=== PATIENT | female | born 1995 | race Asian ===

== ENCOUNTER 2021-05-07 17:12 | Observation (INO) | payer OTHER, SELFPAY ==
[2021-05-07 17:46] VITALS: BP 96/58; PULSE 77
[2021-05-07 18:01] VITALS: BP 91/61; PULSE 70
[2021-05-07] MEDS: DEXTROSE 5%/LACTATED RINGERS 1,000 ML 999 ML IV CONT (18:31)
[2021-05-07 19:05] VITALS: BMI 23.3
--- NOTE | 2021-05-07 19:05 | OBADM ---
This patient, Yvette Morrissey, admitted to the OB room OB Post 115 for observation. Patient/family oriented to hospital policies and general routines including ID bracelet, bed and alarms, visiting hours, pain management, procedures, bathroom and other care routines, personal items, smoking policy, room service/diet, and visiting hours. Patient/Family are encouraged to report perceived risks to care and to ask questions if they do not understand what they are told or what they should do.
[2021-05-07 19:06] LABS: Alanine Aminotransferase 42 U/L (4-35); Albumin Level 4.4 g/dL (3.5-5.1); Alkaline Phosphatase 71 U/L (38-126); Anion Gap 9 mmol/L (8-16); Aspartate Amino Transferase 37 U/L (14-36); Bilirubin,Total 0.9 mg/dL (0.2-1.3); Blood Urea Nitrogen 2 mg/dL (7-17); Calcium 9.4 mg/dL (8.4-10.2); Carbon Dioxide 24 mmol/L (22-30); Chloride 102 mmol/L (98-107); Estimated Glomerular Filt Rate > 60; Glucose 79 mg/dL (65-110); Potassium 3.7 mmol/L (3.4-5.0); Sodium 135 mmol/L (137-145)
[2021-05-07] MEDS: PROMETHAZINE HCL 25 MG/ML AMPUL 12.5 MG IV PUSH (19:40)
[2021-05-07] MEDS: DEXTROSE 5%/LACTATED RINGERS 1,000 ML 200 ML IV CONT (19:45)
[2021-05-07 19:55] LABS: Free T4 Free Thyroxine 0.83 ng/mL (0.78-2.19)
[2021-05-07 19:56] LABS: Add Urine Microscopic? YES; Amorphous Sediment Urine Few; Appearance Urine Clear (Clear); Bacteria Urine Trace /hpf; Bilirubin Urine Negative (Negative); Blood Urine 1+ (Negative); Color Urine Colorless (Yellow); Glucose Urine UA 3+ mg/dL (Negative); Ketones Urine Negative (Negative); Leukocyte Esterase Ur Negative LEU/UL (NEGATIVE); Nitrate Urine Negative (Negative); Protein Urine Negative (Negative); RBC Urine 0-2 /hpf (0-2); Squamous Epithelial Cell Urine Occasional /hpf (Few); Urobilinogen Urine Negative mg/dL (<2.0); WBC Urine 0-3 /hpf (0-3)
[2021-05-07 20:03] LABS: Specific Grav Ur 1.003 (1.001-1.035)
--- NOTE | 2021-05-29 09:44 | PM.OBTRLD ---
OB - Triage/Final Diagnosis Visit Information Comments/Additional reasons for admission: I have assessed the risk for this patient, Yvette Morrissey, and determined that she would benefit from observation care. Evaluation Laboratory results: Laboratory Tests 05/07/21 05/07/21 05/07/21 18:28 18:28 18:28 Sodium 135 L Potassium 3.7 Chloride 102 Carbon Dioxide 24 Anion Gap 9 BUN 2 L Creatinine 0.40 L Estim Creat Clear Calc Not Reportable Estimated GFR > 60 Glucose 79 Calcium 9.4 Total Bilirubin 0.9 AST 37 H ALT 42 H Alkaline Phosphatase 71 Total Protein 8.0 Albumin 4.4 TSH 2.240 Cancelled Free T4 0.83 Urine Color Urine Appearance Urine pH Ur Specific [place] Urine Protein Urine Glucose (UA) Urine Ketones Ur Blood (Man) Urine Nitrate Urine Bilirubin Urine Urobilinogen Ur Leukocyte Esterase Urine RBC Urine WBC Ur Squamous Epith Cells Amorphous Sediment Urine Bacteria 05/07/21 19:39 Sodium Potassium Chloride Carbon Dioxide Anion Gap BUN Creatinine Estim Creat Clear Calc Estimated GFR Glucose Calcium Total Bilirubin AST ALT Alkaline Phosphatase Total Protein Albumin TSH Free T4 Urine Color Colorless Urine Appearance Clear Urine pH 8.0 Ur Specific [place] 1.003 Urine Protein Negative Urine Glucose (UA) 3+ H Urine Ketones Negative Ur Blood (Man) 1+ H Urine Nitrate Negative Urine Bilirubin Negative Urine Urobilinogen Negative Ur Leukocyte Esterase Negative Urine RBC 0-2 Urine WBC 0-3 Ur Squamous Epith Cells Occasional Amorphous Sediment Few H Urine Bacteria Trace Final Diagnosis (1) Hyperemesis affecting , antepartum: Code(s): O21.0 - Mild hyperemesis gravidarum Status: Acute
== END 2021-05-07 23:00 | disposition home or self-care (01) ==
PROVIDERS: Obstetrics & Gynecology; Admitting Provider Obstetrics & Gynecology; PCP Internal Medicine; Visit Provider Obstetrics & Gynecology
DX: O21.0 Mild hyperemesis gravidarum (principal); Z3A.00 Weeks of gestation of pregnancy not specified
CPT/HCPCS: 36415; 80053; 81001; 84439; 84443; 96361; 96374; G0378; G0379; J2550; J7121

== ENCOUNTER 2021-05-14 14:34 | Outpatient (CLI) | payer OTHER, SELFPAY ==
[2021-05-14 20:00] LABS: Alanine Aminotransferase 54 U/L (4-35); Albumin Level 4.2 g/dL (3.5-5.1); Alkaline Phosphatase 77 U/L (38-126); Anion Gap 12 mmol/L (8-16); Aspartate Amino Transferase 40 U/L (14-36); Blood Urea Nitrogen 3 mg/dL (7-17); Calcium 9.8 mg/dL (8.4-10.2); Carbon Dioxide 23 mmol/L (22-30); Chloride 99 mmol/L (98-107); Estimated Glomerular Filt Rate > 60; Glucose 93 mg/dL (65-110); Potassium 3.8 mmol/L (3.4-5.0); Sodium 134 mmol/L (137-145)
[2021-05-14 20:05] LABS: Vitamin D 25 Hydroxy 40.4 ng/mL
[2021-05-14 20:30] LABS: HIV 1/2 Ab P24 Ag Result Negative (Negative); Hepatitis B Surface Antigen Negative (Negative); Rubella IgG Antibody 75.4 IU/ML
[2021-05-14 20:36] LABS: Hepatitis C Virus Antibody Negative (Negative)
[2021-05-15 10:05] LABS: Rapid Plasma Reagin Non-Reactive (NonReactive)
== END 2021-05-14 14:35 | disposition home or self-care (01) ==
PROVIDERS: PCP Internal Medicine; Visit Provider Obstetrics & Gynecology
DX: Z34.90 Encounter for supervision of normal pregnancy, unspecified, unspecified trimester (principal)
CPT/HCPCS: 36415; 80053; 82248; 82306; 86592; 86703; 86762; 86787; 86803; 87340; G0432

== ENCOUNTER 2021-05-21 16:32 | Outpatient (CLI) | payer OTHER, SELFPAY ==
[2021-05-21 16:52] LABS: Basophils Absolute Auto 0.1 K/mm3 (0.0-0.1); Basophils Percent Auto 0.5 % (0.2-1.2); Eosinophils Absolute Auto 0.1 K/mm3 (0-0.3); Eosinophils Percent Auto 0.9 % (0-4.4); Hematocrit 40.6 % (37.0-47.0); Hemoglobin 13.4 g/dL (12.0-15.0); Immature Granulocyte Absolute 0.13 K/mm3 (0.00-0.031); Immature Granulocyte Percent A 1.3 % (0-0.5); Lymphocytes Absolute Auto 2.05 K/mm3 (0.9-3.2); Mean Corpuscular Hemoglobin 28.4 pg (26-34); Monocytes Absolute Auto 0.5 K/mm3 (0.1-0.6); Monocytes Percent Auto 4.9 % (2.6-8.5); Neutrophils Absolute Auto 7.5 K/mm3 (1.3-6.7); Neutrophils Percent Auto 72.4 % (45.5-73.1); Platelet Count Result 318 k/mm3 (150-375); Red Blood Count 4.72 M/mm3 (4.2-5.4); White Blood Count 10.3 K/mm3 (4.5-10.0)
[2021-05-21 17:04] LABS: Alanine Aminotransferase 28 U/L (4-35); Albumin Level 4.2 g/dL (3.5-5.1); Alkaline Phosphatase 72 U/L (38-126); Aspartate Amino Transferase 25 U/L (14-36); Bilirubin,Total 0.8 mg/dL (0.2-1.3)
[2021-05-24 19:47] LABS: Hematocrit 40.3 % (35.0-45.0); Hemoglobin 13.5 g/dL (11.7-15.5); MCH 29.3 pg (27.0-33.0); MCV 87.5 fL (80.0-100.0); RDW 12.9 % (11.0-15.0); Red Blood Cell Count 4.61 Mill/uL (3.80-5.10)
== END 2021-05-21 16:33 | disposition home or self-care (01) ==
PROVIDERS: PCP Internal Medicine; Visit Provider Obstetrics & Gynecology
DX: Z34.90 Encounter for supervision of normal pregnancy, unspecified, unspecified trimester (principal); R74.8 Abnormal levels of other serum enzymes
CPT/HCPCS: 36415; 80076; 83021; 85025; 86850; 86900; 86901

== ENCOUNTER 2021-06-13 15:06 | Emergency (ER) | payer OTHER, SELFPAY ==
--- NOTE | ~2021-06-13 | US_ITS ---
US OB <= 14 weeks fetus DATE: 06/13/2021 17:48 INDICATION: Vaginal bleeding TECHNIQUE: Real-time imaging and Doppler analysis COMPARISON: 08/04/2019 obstetrical ultrasound FINDINGS: The uterus measures 13 cm height, 7.4 cm anteroposterior and 10.3 cm transverse dimension. There is a live allison intrauterine gestation. Posterior placenta. Subjectively normal amount of a mniotic fluid. heart rate of 163 bpm. [place]-rump length averages 7.23 cm, consistent with estimated gestational age of 13 weeks 3 days +/- 1 week 1 day. FLOR by ultrasound is 12/16/2021 compared to 12/18/2021. IMPRESSION: Estimated gestational age 13 weeks 3 days +/- 1 week 1 day; FLOR 12/16/2021 Reviewed, dictated and finalized at [facility]. Reviewed, dictated and finalized at [facility]. IMPRESSION: Estimated gestational age 13 weeks 3 days +/- 1 week 1 day; FLOR 11/21
[2021-06-13 15:21] VITALS: BP 116/74; PULSE 97; RESP 14; TEMP 37.6; O2SAT 96
[2021-06-13 15:37] LABS: Basophils Absolute Auto 0.1 K/mm3 (0.0-0.1); Basophils Percent Auto 0.5 % (0.2-1.2); Eosinophils Absolute Auto 0.2 K/mm3 (0-0.3); Eosinophils Percent Auto 1.2 % (0-4.4); Hematocrit 40.3 % (37.0-47.0); Hemoglobin 13.5 g/dL (12.0-15.0); Immature Granulocyte Absolute 0.26 K/mm3 (0.00-0.031); Lymphocytes Absolute Auto 3.09 K/mm3 (0.9-3.2); Lymphocytes Percent Auto 24.1 % (18.3-44.2); Mean Corpuscular HGB Conc 33.5 g/dl (32-36); Mean Corpuscular Volume 86.7 fl (80-100); Mean Platelet Volume 8.7 fl (7.4-10.4); Monocytes Absolute Auto 0.6 K/mm3 (0.1-0.6); Monocytes Percent Auto 4.3 % (2.6-8.5); Neutrophils Absolute Auto 8.7 K/mm3 (1.3-6.7); Neutrophils Percent Auto 67.9 % (45.5-73.1); Platelet Count Result 358 k/mm3 (150-375); Red Blood Count 4.65 M/mm3 (4.2-5.4); Red Cell Distribution Width 12.4 % (11.5-14.5); White Blood Count 12.8 K/mm3 (4.5-10.0)
[2021-06-13 16:22] VITALS: BP 107/69; PULSE 95; RESP 18; TEMP 36.6; O2SAT 100
--- NOTE | 2021-06-13 17:05 | ED.PREGNANCY ---
HPI - General Chief complaint: BRANCH ACCOUNT MANAGER Stated complaint: BLEEDING 9WKS PREG Time Seen by Provider: 06/13/21 16:20 Source: patient Mode of arrival: ambulatory Limitations: no limitations History of Present Illness HPI Narrative: This is a 25-year-old G2, P1, about 13 weeks that presents to the emergency department for vaginal bleeding. Ongoing over the last couple hours. Reports dark red blood. Reports she has been having a lot of trouble with nausea and vomiting this . Is currently on Zofran. Denies fever, or pelvic cramping. Related Data Allergies Allergy/AdvReac Type Severity Reaction Status Date / Time No Known Drug Allergies Allergy Unknown unknown Verified 06/13/21 16:28 Review of Systems Review of Systems: CONSTITUTIONAL: Denies fever GASTROINTESTINAL: Reports nausea and vomiting. Denies abdominal pain All systems reviewed & are unremarkable except as noted in HPI and below PMFSH Surgical History Surgical History History of appendectomy History of section Family History Family History Father Hyperlipidemia Grandparent Hypertension Social History Social History Smoking status: Never smoker Alcohol intake: never Substance use: never Gender identity (if verbalized by the patient): Female Exam Narrative: GENERAL: Well-appearing, well-nourished, anxious HEAD: Normocephalic, atraumatic. EYES: EOMI. CHEST: Clear to auscultation. No respiratory distress. No wheezes rales or rhonchi HEART: Regular rate and rhythm. No murmur heard. Normal peripheral pulses. ABDOMEN: Soft, nontender, nondistended, normal active bowel sounds. EXTREMITIES: Normal range of motion. No edema. SKIN: Warm, dry, no rash. NEURO: No focal deficits. Alert and oriented x3. PSYCH: Normal mood and affect PELVIC: Cervix is normal appearing and closed. Small to moderate amount of dark red blood in the vaginal vault Course Consultations Consultation #1: Spoke with Dr. Reece about patient and workup. Patient is to be put on pelvic rest and follow-up in clinic Date: 06/13/21 Time: 18:36 Vital Signs Vital signs: Vital Signs Temperature 99.6 F 06/13/21 15:21 Pulse Rate 97 06/13/21 15:21 Respiratory Rate 14 06/13/21 15:21 Blood Pressure 116/74 06/13/21 15:21 Pulse Oximetry 96 06/13/21 15:21 Temperature 97.8 F 06/13/21 16:22 Pulse Rate 95 06/13/21 16:22 Respiratory Rate 18 06/13/21 16:22 Blood Pressure 107/69 06/13/21 16:22 Pulse Oximetry 100 06/13/21 16:22 MDM - OB/Uterine Contractions MDM Narrative Medical decision making narrative: Patient presents to the emergency department for vaginal bleeding, about 13 weeks . She is afebrile and nontoxic-appearing. Vitals are stable. Hemoglobin is 13.5. Patient does have a small amount of bleeding on exam. The cervix appears closed. Patient is B+. ultrasound shows estimated gestational age 13 weeks and 3 days. Shows a 3 x 3.9 x 2 mm heterogenous echogenic area and a subchorionic area which might be clotted blood from subchorionic hematoma. Patient was updated on case findings. Spoke with Dr. Reece about patient and workup. Patient is to be put on pelvic rest and follow-up in clinic. Patient is stable and felt appropriate for further outpatient evaluation. She was given warnings to return to the ER Lab Data Attestation: I reviewed the patient's lab results. Result diagrams: 06/13/21 15:28 Labs: Lab Results 06/13/21 06/13/21 06/13/21 Range/Units 15:28 15:28 15:28 WBC 12.8 H (4.5-10.0) K/mm3 RBC 4.65 (4.2-5.4) M/mm3 Hgb 13.5 (12.0-15.0) g/dL Hct 40.3 (37.0-47.0) % MCV 86.7 (80-100) fl MCH 29.0 (26-34) pg MCHC 33.5 (32-36) g/dl RDW 12.4 (11.5-14.5) % Plt Count 358 (15
[2021-06-13 19:01] VITALS: BP 135/77; PULSE 88; RESP 16; O2SAT 100
== END 2021-06-13 19:04 | disposition home or self-care (01) ==
PROVIDERS: Emergency Medicine; Emergency Provider Emergency Medicine; PCP Internal Medicine
DX: O41.8X20 Other specified disorders of amniotic fluid and membranes, second trimester, not applicable or unspecified (principal); Z3A.13 13 weeks gestation of pregnancy
CPT/HCPCS: 36415; 76801; 84702; 85025; 85461; 99284

== ENCOUNTER 2021-11-09 14:00 | Outpatient (RCR) | payer OTHER, SELFPAY ==
[2021-11-07 15:09] VITALS: BMI 26.9
[2021-11-07 15:10] VITALS: BMI 26.9
== END 2022-01-21 11:00 | disposition home or self-care (01) ==
LOC: ANHDMC 14:00
PROVIDERS: PCP Internal Medicine; Visit Provider Obstetrics & Gynecology
DX: O24.419 Gestational diabetes mellitus in pregnancy, unspecified control (principal); Z3A.00 Weeks of gestation of pregnancy not specified; Z71.3 Dietary counseling and surveillance; Z71.89 Other specified counseling
CPT/HCPCS: 97802; G0108

== ENCOUNTER 2021-12-11 16:49 | Outpatient (RCR) | payer OTHER, SELFPAY ==
[2021-12-11 17:30] VITALS: BP 100/61; PULSE 79
== END 2022-02-25 09:01 | disposition home or self-care (01) ==
LOC: ANHOBOP 16:49
PROVIDERS: PCP Internal Medicine; Visit Provider Obstetrics & Gynecology
DX: O36.8330 Maternal care for abnormalities of the fetal heart rate or rhythm, third trimester, not applicable or unspecified (principal); Z3A.39 39 weeks gestation of pregnancy
CPT/HCPCS: 59025

== ENCOUNTER 2021-12-18 16:48 | Outpatient (CLI) | payer OTHER, SELFPAY ==
[2021-12-18 17:18] LABS: Hematocrit 42.1 % (37.0-47.0); Hemoglobin 13.5 g/dL (12.0-15.0); Mean Corpuscular HGB Conc 32.1 g/dl (32-36); Mean Corpuscular Hemoglobin 28.2 pg (26-34); Mean Corpuscular Volume 87.9 fl (80-100); Mean Platelet Volume 9.6 fl (7.4-10.4); Platelet Count Result 245 k/mm3 (150-375); Red Blood Count 4.79 M/mm3 (4.2-5.4); Red Cell Distribution Width 14.5 % (11.5-14.5); White Blood Count 10.3 K/mm3 (4.5-10.0)
[2021-12-19 09:26] LABS: Rapid Plasma Reagin Non-Reactive (NonReactive)
== END 2021-12-18 16:49 | disposition home or self-care (01) ==
LOC: ANHLAB 16:52
PROVIDERS: PCP Internal Medicine; Visit Provider Obstetrics & Gynecology
DX: Z01.818 Encounter for other preprocedural examination (principal)
CPT/HCPCS: 36415; 85027; 86592; 86850; 86900; 86901

== ENCOUNTER 2021-12-19 10:10 | Inpatient (IN) | payer OTHER, SELFPAY ==
[2021-12-19] VITALS (51 sets, daily range): BP systolic 70–109; BP diastolic 11–79; PULSE 63–142; RESP 16–22; TEMP 35.8–36.8; O2SAT 95–100; BMI 28.2
--- NOTE | 2021-12-19 07:40 | HP_ITS ---
This report was moved to the correct visit, on 12/25/21. Original report was signed by Mayur Byrd MD 12/19/21 1283. H&P: HPI History of Present Illness Date/Time: 12/19/21 07:34 She is at 40 weeks 1 day by 6w6d ultrasound that was not consistent with LMP. Patient admitted for scheduled repeat csection. She has been counseled regarding option of trial of labor versus repeat cesearean section risk benefits and has opted for repeat csection. PNC significant for hyperemesis in first trimester and diet controlled gestational hypertension. Labs reviewed. Chief Complaint: Elective repeat ceserean section Review of Systems Review of Systems: All systems reviewed & are unremarkable except as noted in HPI and below Constitutional: Constitutional: Reports no additional constitutional complaints and Denies headache(s) Eyes: Eyes: Denies spots in vision ENT: Reports system reviewed and no additional complaints, except as documented and Denies headache(s) Cardiovascular: Cardiovascular: Denies chest pain and Denies dyspnea Respiratory: Respiratory: Denies dyspnea Gastrointestinal: Gastrointestinal: Reports no additional gastrointestinal complaints Genitourinary: Genitourinary: Reports amenorrhea Musculoskeletal: Musculoskeletal: Reports no additional musculoskeletal complaints Integumentary/Breasts: Skin/Breast: Denies breast mass and Denies rash Neurologic: Denies headache(s) Psychiatric: Psychiatric: Reports no additional psychiatric complaints PMF Surgical History Surgical History History of appendectomy History of section Family History Family History Father Hyperlipidemia Grandparent Hypertension Mother Hx of appendectomy Social History Social History Smoking status: Never smoker Alcohol intake: never Substance use: never Gender identity (if verbalized by the patient): Female Spiritual care concerns: No Meds Home Medications and Allergies Home Medications Medication Instructions Recorded Confirmed Type prenat.vits,kaia,cod-[id number] 1 tablet PO DAILY 11/01/21 12/17/21 History lancets #100 ea 11/12/21 12/17/21 Rx blood sugar diagnostic #100 ea 11/13/21 12/17/21 Rx Allergies Allergy/AdvReac Type Severity Reaction Status Date / Time No Known Drug Allergies Allergy Unknown unknown Verified 12/11/21 15:46 Exam Const: General: no acute distress Eyes: General: appearance normal, both eyes and all related structures Resp: Effort & Inspection: normal respiratory effort Cardio: Rate: regular rate GI: Other: Gravid no fundal tenderness no right upper quadrant pain : External Female Exam: normal external appearance Speculum Exam - Vagina: normal appearance of the vagina Speculum Exam - Cervix: normal appearance of the cervix and Other cervical findings present (closed) Skin: General skin exam: no rashes or lesions noted Neuro: Cognition (Neuro): normal cognition Extrem: General: normal to inspection Psych: Mental Status: mental status grossly normal Assessment and Plan Assessment and plan (1) Delivery by elective section: Code(s): O82 - Encounter for delivery without indication Status: Acute Assessment and Plan: Will proceed with repeat ceserean section. (2) Gestational diabetes:
--- NOTE | 2021-12-19 10:25 | HP_ITS ---
This report was moved to the correct visit, on 12/27/21. Original report was signed by Mayur Byrd MD 12/19/21 1025. History and Physical Update Update Date/Time: 12/19/21 07:40 History and Physical has been reviewed, including an updated exam of the patient. There are NO changes in the patient's condition. Risks, benefits, and alternatives have been discussed and questions answered. Patient agrees to proceed with procedure. This dictation may have been done utilizing a voice recognition system. Attempts have been made to correct errors. However, there may be uncorrected grammatical, spelling, and recognition errors present. Report Initialized date/time: Mayur Byrd MD 12/19/21 / 5 Electronically signed by: Mayur Byrd MD 12/19/21 1025 [facility]
--- NOTE | 2021-12-19 10:29 | PN_ITS ---
This report was moved to the correct visit on 12/27/21. Original report was signed by Wing Martin MD 12/19/21 1029. Anes - Initial Pre Proc Eval Procedure: Operation Date: 12/19/21 12:00 Proposed Procedures p Section - Mayur Byrd MD Date/Time: 12/19/21 10:28 Surgeon: Mayur Byrd MD Pre Op Diagnosis: Repeat Patient Data Age: 26 Gender: F Height: Weight: Allergies Allergy/AdvReac Type Severity Reaction Status Date / Time No Known Drug Allergies Allergy Unknown unknown Verified 12/11/21 15:46 Home Medications Medication Instructions Recorded Confirmed Type prenat.vits,kaia,kgp-wqoj-beynq 1 tablet PO DAILY 11/01/21 12/17/21 History lancets #100 ea 11/12/21 12/17/21 Rx blood sugar diagnostic #100 ea 11/13/21 12/17/21 Rx Patient hx anesthesia problems: other (anxiety agitation) Family hx anesthesia problems: none Results Review: All pre-operative results and documents have been reviewed as part of the pre-operative evaluation. [facility] Past Medical History Medical History Diabetes in Surgical History Surgical History History of appendectomy History of section Family History Family History Father Hyperlipidemia Grandparent Hypertension Mother Hx of appendectomy Social History Social History Smoking status: Never smoker Alcohol intake: never Substance use: never Gender identity (if verbalized by the patient): Female Spiritual care concerns: No Anes - Eval Final PreProcedure Day of Procedure 12/19/21 10:28 Patient weight: normal Heart: regular rate and rhythm Lungs: clear to auscultation Airway: Mallampati scale class II Neurological: alert and oriented Last oral intake: >/= 8 hours ASA classification: II Emergent: no Anesthetic plan: proceed Anesthesia type and monitoring: regional spinal and standard monitoring Results Review: All pre-operative results and documents have been reviewed as part of the pre-operative evaluation. Informed Consent: The patient's anesthetic plan and its attendant risks and benefits were discussed with the patient/family/POA. Questions were solicited and answers provided to the satisfaction of the patient/family/POA. This dictation may have been done utilizing a voice recognition system. Attempts have been made to correct errors. However, there may be uncorrected grammatical, spelling, and recognition errors present. Report Initialized date/time: Wing Martin MD 12/19/211028 Electronically signed by: Wing Martin MD 12/19/211028 [facility]
[2021-12-19 10:51] LABS: Glucose Point of Care 82 mg/dl (65-105)
--- NOTE | 2021-12-19 10:57 | LDADM ---
This patient, Yvette Morrissey, was admitted to Labor/Delivery/Recovery 118 on 12/19/21 at 10:10. Plans for labor, pain management and were discussed with patient. Patient/family oriented to hospital policies and general routines including ID bracelet, bed and alarms, visiting hours, pain management, procedures, bathroom and other care routines, personal items, smoking policy, room service/diet and guest tray routines, infant security routines, and visiting hours. Patient/Family are encouraged to report perceived risks to care and to ask questions if they do not understand what they are told or what they should do. See OBIX for further documentation.
[2021-12-19] MEDS: LACTATED RINGERS 1,000 ML 125 ML IV CONT (10:59)
[2021-12-19] MEDS: ceFAZolin 2 GM/D5W 50 ML 2 GM/50 ML BAG IVPB (11:29)
[2021-12-19 11:50] LABS: HIV 1/2 Ab P24 Ag Result Negative (Negative)
[2021-12-19] MEDS: OXYTOCIN 30 UNITS/NS 500 ML 30 UNITS/500 ML BAG 125 UNITS IV CONT (13:11)
--- NOTE | 2021-12-19 13:27 | W.PM.PROC2 ---
Procedure Note - Detailed Date of Procedure 12/20/21 Pre-op Diagnosis Elective Post-op Diagnosis same Procedure Performed Repeat low transverse ceserean section Surgeon Mayur Byrd MD Anesthesia spinal Indications Elective repeat ceserean section Findings Female 1157 8,9 Description of Procedure After informed consent, risks and benefits of the procedure was discussed with the patient. The patient was taken to the operating room where she was placed in the dorsal lithotomy position with leftward tilt. After the prior placed epidural anesthesia was found to be adequate, she was then prepped and draped in the usual sterile fashion. A Pfannenstiel skin incision was made with a scalpel along her prior scar and carried through to the underlying layer of fascia. The fascia was then nicked in the midline, extending bilaterally. The fascia was dissected off the rectus muscles bluntly and sharply, superiorly and inferiorly. The rectus muscles were in the midline, and peritoneum was identified and entered bluntly. The pelvic organs were visualized. The bladder blade was then inserted. The vesicouterine peritoneum was identified and entered sharply with Metzenbaum scissors and the scar tissue was dissected from the lower uterine segment extended bilaterally and then the bladder flap was created digitally. The low transverse uterine incision was then made with the scalpel and extended with bilateral index fingers in a crescent-shaped fashion. The head was delivered loose nuchal cord manually reduced and the rest of the was delivered. The nose and mouth suctioned. The cord was clamped twice and cut. The infant was then handed off to the awaiting pediatric staff. The placenta was then delivered manually. The uterine cavity was sponge curretted. The uterus was then exteriorized. The uterine incision was then closed with 0 vicryl in a running locked fashion.Hemostasis noted. A second layer of 0 vicryl was used in an imbricating fashion for hemostasis. The uterus was then returned to the abdomen. Bilateral gutters were cleared off all clots and debris. The uterine incision was noted to be hemostatic. Interceed placed on uterine incision and vertically on front of uterus. The muscle bellies were inspected and noted to be hemostatic. The peritoneum was closed with 3.0 vicryl. The subfascial layer was noted to be hemostatic, and the fascia was closed with 0 Vicryl in a running fashion. The subcutaneous layer was then closed with 3-0 Vicryl in a subcutaneous fashion. The skin was closed with dissolveable shane. Skin dermabond applied at incision. All instruments, needle, and lap counts were correct x3. The patient was taken to the recovery room in stable condition. Estimated Blood Loss 375 Drains No Packing No Pathology none sent Complications No immediate complications Condition stable Disposition floor
[2021-12-19] MEDS: diphenhydrAMINE HCl INJ 50 MG/ML VIAL 25 MG IV PUSH (14:16)
--- NOTE | 2021-12-19 15:02 | PC.NURSE ---
Patient transferred to post room #292 via stretcher. Support person present. Oriented to unit, room, information board, rooming in, admission packet and security measures. Patient verbalizes understanding.
[2021-12-19] MEDS: DEXTROSE 5%/0.45% SOD CHL 1,000 ML 125 ML IV CONT (17:22)
[2021-12-19] MEDS: IBUPROFEN 600 MG TABLET PO (20:56)
[2021-12-20] VITALS: BP 95/58; PULSE 76; RESP 16; TEMP 36.6; O2SAT 96
[2021-12-20 04:00] VITALS: BP 100/55; PULSE 75; RESP 16; TEMP 36.3; O2SAT 99
[2021-12-20] MEDS: IBUPROFEN 600 MG TABLET PO ×3 (05:36→22:36)
[2021-12-20] MEDS: HYDROcodone/acetaminophen (*CRX) 5-325 MG TABLET 1 TAB PO (05:37)
[2021-12-20 05:41] LABS: Basophils Absolute Auto 0.1 K/mm3 (0.0-0.1); Basophils Percent Auto 0.3 % (0.2-1.2); Eosinophils Percent Auto 0.1 % (0-4.4); Hematocrit 35.7 % (37.0-47.0); Hemoglobin 11.7 g/dL (12.0-15.0); Immature Granulocyte Absolute 0.21 K/mm3 (0.00-0.031); Immature Granulocyte Percent A 1.2 % (0-0.5); Lymphocytes Percent Auto 10.3 % (18.3-44.2); Mean Corpuscular HGB Conc 32.8 g/dl (32-36); Mean Corpuscular Hemoglobin 28.6 pg (26-34); Mean Corpuscular Volume 87.3 fl (80-100); Mean Platelet Volume 9.7 fl (7.4-10.4); Monocytes Absolute Auto 1.1 K/mm3 (0.1-0.6); Monocytes Percent Auto 6.2 % (2.6-8.5); Neutrophils Absolute Auto 14.3 K/mm3 (1.3-6.7); Neutrophils Percent Auto 81.9 % (45.5-73.1); Platelet Count Result 212 k/mm3 (150-375); Red Blood Count 4.09 M/mm3 (4.2-5.4); Red Cell Distribution Width 14.3 % (11.5-14.5); White Blood Count 17.5 K/mm3 (4.5-10.0)
[2021-12-20 08:00] VITALS: BP 92/59; PULSE 85; RESP 16; TEMP 36.7; O2SAT 98
[2021-12-20] MEDS: SIMETHICONE 80 MG TAB.CHEW PO (08:30)
--- NOTE | 2021-12-20 11:13 | PC.NURSE ---
Checked in with mom, she does not want any pain medication at this time and is waiting until she eats. I offered to give her Toradol IV push and she declined that as well. Mom was falling asleep in the bed with baby in her arms and was told that baby needed to be put in the crib if she was going to go to sleep, dad made aware as well.
--- NOTE | 2021-12-20 11:25 | WPDANLDNPN2 ---
Anes-Prog Note L&D-Neuraxial Date/Time: 12/20/21 11:25 Neuraxial medications: intrathecal PF morphine Opiod-related complaints: none Patient feedback: Patient satisfied with post-operative pain management.
--- NOTE | 2021-12-20 11:26 | WPDANLDPN2 ---
Anes-Prog Note L&D Date/Time: 12/20/21 11:26 Comfortable throughout: section Neuraxial method: spinal Epidural/Spinal procedure site: clean & non-tender Neuro status: Neuro function grossly intact. Cardiovascular status: normal Respiratory status: normal Airway patency: baseline Mental status: baseline Post-Op hydration status: normal Vital Signs: Last Vital Signs Temp 36.7 C 12/20/21 08:00 Pulse 85 12/20/21 08:00 Resp 16 12/20/21 08:00 BP 92/59 L 12/20/21 08:00 Pulse Ox 98 12/20/21 08:00 Pain score (VAS): 0 I/O: Intake & Output 12/19/21 12/20/21 12/20/21 23:59 07:59 15:59 Intake Total 800 400 Output Total 1900 900 550 Balance -1100 -900 -150 Post-procedural complaints: none Patient feedback: Patient satisfied with anesthetic care.
[2021-12-20] MEDS: DOCUSATE SODIUM 100 MG CAPSULE PO (12:24)
[2021-12-20] MEDS: MULTIVIT/MIN/PREN/FOL AC/IRON TABLET 1 TAB PO (12:24)
[2021-12-20] MEDS: HYDROcodone/acetaminophen (*CRX) 10-325 MG TABLET 1 TAB PO ×3 (12:25→23:13)
--- NOTE | 2021-12-20 15:32 | PC.NURSE ---
0800 - 0830 Introductions were made. Mother is sleeping, baby is sucking on a pacifier, and father of baby responds. It has been 3 hours since the last breastfeed and RN is encouraging baby to eat. Demonstrated how to stimulate infant to wake and show feeding cues. Father of baby is protective of mother sleeping. Encouraged wakefulness to feed to protect the milk supply as mother desires to breastfeed. RN places infant showing feeding cues skin to skin with mother. Mother hesitates to move and RN assesses whether or not pain medication is needed. Father of baby states she received medication earlier. Mother latches in a laid back position and states there is no pain or discomfort with . Infant is able to maintain latch without discomfort to mother. appears to have a shallow latch but mother is confident in and states there is no discomfort. Reviewed signs of adequate suck/swallow ratios, intake, output, preventing jaundice, positioning for better milk transfer. Risk of pacifier use when wants to eat. Dr. Byrd is now at bedside assessing mother and encourages patient to empty her full bladder. Mother is focused on her needs at this time. is detached from the breast and RN encouraged mother to the side of the bed with the help of the spouse. Call made to primary RN to assess possible pain medication. Mother assisted to the restroom to void. Parents voiced understanding to call for assistance if doesn't latch or there's pain with latching. Reported to primary RN.
--- NOTE | 2021-12-20 18:47 | PM.OBPNVD ---
OB - PN: Subj Subjective Date/time seen: 12/20/21 0820 She is . Lochia light. She has sat up in chair. Tolerating regular diet. No leg pain. She has adequate pain control. She has not ambulated. No leg pain. OB - PN: Obj Data Labs CBC & Chem 7: 12/20/21 05:22 Labs: Laboratory Results - last 24 hr 12/20/21 05:22 WBC 17.5 H RBC 4.09 L Hgb 11.7 L Hct 35.7 L MCV 87.3 MCH 28.6 MCHC 32.8 RDW 14.3 Plt Count 212 MPV 9.7 Immature Gran % (Auto) 1.2 H Neut % (Auto) 81.9 H Lymph % (Auto) 10.3 L [place] % (Auto) 6.2 Eos % (Auto) 0.1 Baso % (Auto) 0.3 Lymph # (Auto) 1.80 [place] # (Auto) 1.1 H Eos # (Auto) 0.0 Baso # (Auto) 0.1 Abs Immat Gran (auto) 0.21 H Absolute Neuts (auto) 14.3 H Absolute Nucleated RBC 0.0 Nucleated RBC % 0.0 OB - PN A/P Assessment and Plan (1) Delivery by elective section: Code(s): O82 - Encounter for delivery without indication Status: Acute Assessment and Plan: Doing well. Routine post op care. Encourage ambulation. Time Spent With Patient Time: Total time spent is greater than 50% in coordination of care (as documented) at patient's floor/unit and/or counseling patient: Exam Const: General: comfortable and no acute distress Resp: Effort & Inspection: normal respiratory effort GI: Other: incision clean dry intact, uterus below umbilicus, appropriate tenderness Extrem: General: normal to inspection Other: nontender Psych: Mental Status: mental status grossly normal Affect: normal affect
[2021-12-20 20:05] VITALS: PULSE 93; RESP 18; TEMP 36.7; O2SAT 100
[2021-12-20 20:30] VITALS: BP 117/73
[2021-12-21] MEDS: HYDROcodone/acetaminophen (*CRX) 10-325 MG TABLET 1 TAB PO ×4 (03:42→16:06)
[2021-12-21] MEDS: DOCUSATE SODIUM 100 MG CAPSULE PO (09:04)
[2021-12-21] MEDS: IBUPROFEN 600 MG TABLET PO ×2 (09:04→16:06)
[2021-12-21] MEDS: MULTIVIT/MIN/PREN/FOL AC/IRON TABLET 1 TAB PO (09:06)
[2021-12-21 09:20] VITALS: BP 102/62; PULSE 93; RESP 16; TEMP 36.6; O2SAT 100
--- NOTE | 2021-12-21 09:47 | PM.OBPNVD ---
OB - PN: Subj Subjective Date/time seen: 12/21/21 09:47 Patient comments: no complaints, pain well controlled, tolerating diet, flatus present and other (Ambulating and voiding without problems. Lochia similar to menses) baby status: doing well OB - PN: Obj Data Labs CBC & Chem 7: 12/20/21 05:22 OB - PN A/P Plan day: 2 (s/p C section, doing well) Plan: routine care Time Spent With Patient Time: Total time spent is greater than 50% in coordination of care (as documented) at patient's floor/unit and/or counseling patient: Exam Const: General: no acute distress Resp: Auscultation: clear to auscultation bilaterally Cardio: Rate: regular rate Rhythm: regular rhythm GI: Inspection: non-distended, incision (Intact without erythema, drainage, or induration) and other (Fundus firm and nontender below umbilicus) GI Palp: Yes abdominal tenderness (appropriate) and Yes Soft to palpation Extrem: General: no edema
--- NOTE | 2021-12-21 13:13 | PC.NURSE ---
[id number] - Mother is sleeping and is in the nursery for assessment. [phone] - Consulted with patient to assess needs related to . Mother led conversation with her experience with feeding baby so far. Mother works well with her . Reviewed good handwashing when working with infant, breast, nipples and how to protect the nipples with a deep latch. Encouraged understanding the benefits of skin to skin, responding to feeding cues for on demand feedings, frequencies of feeding to be 8-12 times in 24 hours (approximately 2-3 hours), duration of feedings, milk production, intake/output feeding sheet and signs of adequate intake. Discussed stimulating with skin to skin, hand expressing colostrum, touch and talking to infant to encourage eating at the breast. Reviewed positioning and alignment, supporting breast, off-centered (asymmetrical latch) and leading with the chin with big open wide gape. Infant latched optimally to the left breast in cross cradle position. Education given to mother of how to visualize suck/swallow ratios and drinking at the breast. Infant was able to maintain latch without discomfort to mother. Nipple care, comfort and healing with warm, wet washcloth to rinse breast and leave to air-dry. Colostrum may be left on nipples to dry but have clean hands when touching the nipple/breast. Resources used to facilitate learning were used from the mom and baby guide. Mother voiced understanding responding to feeding cues, may need to stimulating approximately 2-3 hours from the start of the last feeding, calling for assistance if the does not latch or there discomfort . Reported to primary RN.
[2021-12-21] MEDS: SIMETHICONE 80 MG TAB.CHEW PO (16:06)
[2021-12-21 19:19] VITALS: BP 104/66; PULSE 80; RESP 16; TEMP 36.1
[2021-12-21] MEDS: HYDROcodone/acetaminophen (*CRX) 5-325 MG TABLET 1 TAB PO (20:09)
[2021-12-22] MEDS: HYDROcodone/acetaminophen (*CRX) 5-325 MG TABLET 1 TAB PO ×3 (02:38→13:09)
[2021-12-22] MEDS: IBUPROFEN 600 MG TABLET PO ×2 (02:38→08:55)
[2021-12-22] MEDS: SIMETHICONE 80 MG TAB.CHEW PO ×2 (04:05→08:59)
[2021-12-22 08:30] VITALS: BP 103/69; PULSE 79; RESP 18; TEMP 36.2; O2SAT 100
[2021-12-22] MEDS: MULTIVIT/MIN/PREN/FOL AC/IRON TABLET 1 TAB PO (08:54)
--- NOTE | 2021-12-22 09:25 | PM.OBDSVD ---
DS: Admitting Diagnosis Discharge Date 12/22/2021 Admitting Diagnosis Full term , GDMA1 DS: Discharge Diagnosis Discharge Diagnosis (1) Delivery by elective section: Code(s): O82 - Encounter for delivery without indication Status: Acute (2) Gestational diabetes: Code(s): O24.419 - Gestational diabetes mellitus in , unspecified control Status: Acute OB - DS: Summary OB Procedures : None OB Procedures Intrapartum: low cervical, transverse OB Procedures: : None Peripartum Data Infant Delivery Method: Section complications: none Status at Discharge Functional status at discharge: independent ambulation Overall status at discharge: patient is progressing back to baseline Time Spent with Patient Time attestation: Total time spent providing and/or coordinating discharge services: Time spent: Less than 30 minutes Discharge Plan Discharge Attending physician on discharge: Mayur Byrd Discharging Clinician: Enma Reece Patient Disposition: Home, Self-Care Activity: may shower and pelvic rest Diet: as tolerated Wound Care Instructions: incision open to air Patient Instructions: Antibiotic Form Stand Alone Forms: General Discharge Information Follow-up/Referrals: Mayur Byrd MD [Physician] - 1 Week Discharge Medications: New hydrocodone-acetaminophen 5-325 mg Tablet 1 tablet PO Q4H PRN (Reason: Moderate Pain (4-6)) Qty: 30 RF: 0 ibuprofen 600 mg Tablet 600 mg PO Q6H PRN (Reason: Cramping) Qty: 60 RF: 0 Continued prenat.vits,kaia,[id number]-vnflj Tablet 1 tablet PO DAILY RF: 0 No Action (DME) lancets Misc See Rx Instructions .Route Qty: 100 RF: 0 (DME) OneTouch Verio test strips Strip See Rx Instructions .Route Qty: 100 RF: 0 Date of admission: 12/19/21 10:10 Primary Care Provider: TripLuis Felipe Admitting Provider: Mayur Byrd Attending physician on admission: Mayur Byrd Condition: Stable
--- NOTE | 2021-12-22 09:43 | PM.OBPNVD ---
OB - PN: Subj Subjective Date/time seen: 12/22/21 09:43 Patient comments: no complaints, pain well controlled, tolerating diet, flatus present and other (Lochia less than menses. Ambulating and voiding without problems) baby status: doing well OB - PN: Obj Data Labs CBC & Chem 7: 12/20/21 05:22 OB - PN A/P Plan day: 3 (s/p section, doing well and ready to be discharged home) Plan: routine care, discharge home and other (Follow up in office in 1 week) Time Spent With Patient Time: Total time spent is greater than 50% in coordination of care (as documented) at patient's floor/unit and/or counseling patient: Exam Const: General: no acute distress Resp: Auscultation: clear to auscultation bilaterally Cardio: Rate: regular rate Rhythm: regular rhythm GI: Inspection: distended, incision (Intact without erythema, drainage, or induration) and other (Fundus firm and nontender below umbilicus) GI Palp: Yes abdominal tenderness (appropriate) and Yes Soft to palpation Extrem: General: no edema
--- NOTE | 2021-12-22 12:33 | PC.NURSE ---
Patient instructed on viewing the discharge video Mother & Baby Care, The First Two Weeks . Patient was given the opportunity and encouraged to ask questions. Patient verbalized understanding of information shared and has been given the mother/baby guide for home reference.
[2021-12-25 12:31] VITALS: BP 105/68; PULSE 98; RESP 16; TEMP 37.1; O2SAT 99
== END 2021-12-22 14:25 | disposition home or self-care (01) | DRG 788 ==
LOC: ANHLDR 10:20 → ANHOB2 12-22 09:27 → ANHLDR 12-25 09:26 → ANHOB2 12-25 09:26
PROVIDERS: Admitting Provider Obstetrics & Gynecology; PCP Internal Medicine; Visit Provider Obstetrics & Gynecology
PROC: (CPT 59514; principal; 2021-12-19 12:00)
DX: O34.211 Maternal care for low transverse scar from previous cesarean delivery (principal); Z37.0 Single live birth; Z3A.40 40 weeks gestation of pregnancy; O24.420 Gestational diabetes mellitus in childbirth, diet controlled; O69.81X0 Labor and delivery complicated by cord around neck, without compression, not applicable or unspecified
CPT/HCPCS: 36415; 82948; 85025; 85027; 86592; 86703; 86850; 86900; 86901; 88307; A9270; G0432; J0131; J0690; J1100; J1200; J2210; J2274; J2405; J2590; J7120

== ENCOUNTER 2023-11-30 17:07 | Emergency (ER) | payer BC, SELFPAY ==
[2023-11-30 17:19] VITALS: BP 117/83; PULSE 98; RESP 16; TEMP 36.9; O2SAT 100
--- NOTE | 2023-11-30 17:22 | ED.URI ---
HPI - URI/Sore Throat General Chief Complaint: Upper Respiratory Infection Stated Complaint: SORE THROAT/SNEEZING/CONGESITON/HEADACHE Time Seen by Provider: 11/30/23 17:23 Source: patient, RN notes reviewed and old records reviewed Mode of arrival: ambulatory Limitations: no limitations History of Present Illness HPI Narrative: 28-year-old female presents to the [facility] with complaints of sore throat, sneezing, congestion and headache for over week. Reports has been was seen yesterday and prescribed antibiotics. Has tried taking DayQuil and NyQuil Reports and children are also sick [place] Related Data Allergies Allergy/AdvReac Type Severity Reaction Status Date / Time No Known Drug Allergies Allergy Unknown unknown Verified 08/13/23 15:37 Review of Systems Review of Systems: All systems reviewed & are unremarkable except as noted in HPI and below Constitutional: Constitutional: Reports as per HPI, Reports body ache(s), Reports chills and Reports fatigue Eyes: Eyes: Reports no additional eye complaints ENT: Reports as per HPI Cardiovascular: Cardiovascular: Reports no additional cardiovascular complaints, Denies chest pain and Denies dyspnea Respiratory: Respiratory: Reports no additional respiratory complaints, Denies chest congestion, Denies cough and Denies dyspnea Gastrointestinal: Gastrointestinal: Reports no additional gastrointestinal complaints, Denies abdominal pain, Denies nausea and Denies vomiting Musculoskeletal: Musculoskeletal: Reports no additional musculoskeletal complaints Integumentary/Breasts: Skin/Breast: Reports system reviewed and no additional complaints, except as docu Neurologic: Reports system reviewed and no additional complaints, except as documented Psychiatric: Psychiatric: Reports no additional psychiatric complaints Allergic/Immunologic: Allergic/Immunologic: Reports no additional allergic/immunologic complaints [facility] Past Medical History Medical History Diabetes in Surgical History Surgical History History of appendectomy History of section x2 Family History Family History Father Hyperlipidemia Grandparent Hypertension Mother Hx of appendectomy Social History Social History Smoking status: Never smoker Alcohol intake: never Substance use: never Gender identity (if verbalized by the patient): Female Spiritual care concerns: No Comments At the time of my signature, I reviewed and agree with the nursing past medical, surgical, social, and family history. There is no relevant family history pertinent to the patient complaint. Exam Const: General: cooperative, healthy appearing, comfortable, no acute distress, well developed, alert and well nourished Nutritional Appearance: well nourished Orientation/consciousness: patient oriented x3 Limitations: no limitations HENMT: Head: normal to inspection Ears: hearing grossly normal bilaterally, external ears normal, EAC's normal, mastoids normal, no periauricular adenopathy and TM abnormal bulging on the left and wth effusion serous bilateral; not erythematous Face/Nose/Sinus: Normal external nose present, Normal nares present, Abnormal mucous membranes and turbinates present boggy bilateral and erythematous bilateral, Nasal discharge present mucoid, normal facial exam and face symmetric Face and sinus: normal facial exam and face symmetric Mouth: Yes Normal oral and palatal mucosa present, Yes lip normal and Yes moist mucous membranes Throat: posterior oropharynx normal, tonsils normal, uvula midline and no uvular edema Eyes: General: appearance normal, both eyes and all related structures Alignment and Position: alignment normal Periorbital: per
== END 2023-11-30 17:42 | disposition home or self-care (01) ==
PROVIDERS: Emergency Provider Nurse Practitioner; PCP Emergency Medicine
DX: J32.9 Chronic sinusitis, unspecified (principal); H65.03 Acute serous otitis media, bilateral
CPT/HCPCS: 99213; G0463